=== PATIENT | male | born 1975 | race African-American/Black ===

== ENCOUNTER → 2017-01-25 | Outpatient (CLI) | payer SELFPAY ==
--- NOTE | 2017-01-25 11:24 | REP ---
CHEST PA AND LATERAL: 01/25/2017 CLINICAL HISTORY: Bronchitis symptoms. FINDINGS: No prior study. The lungs are well inflated and clear. The heart, mediastinal and hilar contours are normal. Airway intact. The bony thorax shows no focal lesion. IMPRESSION: 1. No acute cardiopulmonary change. Signed by Narendra Kovacs MD 01/25/2017 01:45 P
== END ==
LOC: M LRY 10:46
PROVIDERS: ATTEND Nurse Practitioner Family
DX: J40 Bronchitis, not specified as acute or chronic (principal)